=== PATIENT | female | born 1985 | race Caucasian/White ===

== ENCOUNTER → 2021-02-04 | Emergency (ER) | payer OTHER ==
[~2021-02-04] VITALS: Ht 160 cm; Wt 53.1 kg
[~2021-02-04] MED LIST: CLONAZEPAM0.5 MG; CLONAZEPAM1 MG; MUCINEX1200 MG; NAPROXEN SODIU550 MG; SERTRALINE HCL25 MG; SERTRALINE HCL50 MG; ZOLOFT50 MG
== END | disposition home or self-care (01) ==
LOC: ER 07:25
DX: J06.9 Acute upper respiratory infection, unspecified (principal); Z03.818 Encounter for observation for suspected exposure to other biological agents ruled out

== ENCOUNTER 2021-02-19 17:23 | Inpatient (IN) | payer OTHER ==
[~2021-02-19] VITALS: Ht 162.6 cm; Wt 52.2 kg
[~2021-02-19 17:23] MED LIST changes: -CLONAZEPAM0.5 MG; -MUCINEX1200 MG; -NAPROXEN SODIU550 MG; -SERTRALINE HCL25 MG; -SERTRALINE HCL50 MG
[2021-02-23] MEDS ORDERED: SERTRALINE HCL50 MG (08:04)
[2021-02-23] MEDS ORDERED: SERTRALINE HCL25 MG (08:04)
[2021-02-23] MEDS ORDERED: CLONAZEPAM0.5 MG (08:04)
[2021-02-23] MEDS ORDERED: MUCINEX1200 MG (08:05)
[2021-02-23] MEDS ORDERED: NAPROXEN SODIU550 MG (08:05)
== END 2021-02-23 17:24 | disposition home or self-care (01) | DRG 343 ==
LOC: ER 17:23 → SEC-K 02-20 08:32 → O/R 02-20 08:32 → SURG 02-21 10:22
PROVIDERS: ADMIT Surgery; ATTEND Surgery
PROC: 0DTJ4ZZ Resection of Appendix, Percutaneous Endoscopic Approach (ICD-10-PCS; principal; 2021-02-20 08:15)
DX: K35.890 Other acute appendicitis without perforation or gangrene (principal); Z20.822 Contact with and (suspected) exposure to COVID-19

== ENCOUNTER 2024-07-17 06:02 | Emergency (ER) | payer OTHER ==
[~2024-07-17] VITALS: Ht 160 cm; Wt 49.9 kg
[~2024-07-17 06:02] MED LIST changes: +CLONAZEPAM0.5 MG; +MUCINEX1200 MG; +NAPROXEN SODIU550 MG; +SERTRALINE HCL25 MG; +SERTRALINE HCL50 MG
[2024-07-17] MEDS ORDERED: DEXAMETHASONE SODIUM PHOSPHATE 4 MG/ML VIAL IM STA (08:23)
== END 2024-07-17 09:08 | disposition home or self-care (01) ==
LOC: ER 06:05
DX: T22.011A Burn of unspecified degree of right forearm, initial encounter (principal); X11.8XXA Contact with other hot tap-water, initial encounter; Y93.89 Activity, other specified; Y92.018 Other place in single-family (private) house as the place of occurrence of the external cause